=== PATIENT | female | born 1960 | race Caucasian/White ===

== ENCOUNTER → 2023-11-09 16:08 | Outpatient (REF) | payer BC, SELFPAY | LOC: MRI 3T 16:08 | PROVIDERS: ATTENDING PHYSICIAN Neurological Surgery; FAMILY PHYSICIAN Family Medicine | DX: I67.1 Cerebral aneurysm, nonruptured (principal) | CPT/HCPCS: 70544 ==

== ENCOUNTER → 2023-11-30 07:34 | Outpatient (REF) | payer BC, SELFPAY | LOC: MRI 3T 07:34 | PROVIDERS: ATTENDING PHYSICIAN Physical Medicine & Rehabilitation | DX: M54.16 Radiculopathy, lumbar region (principal); M54.17 Radiculopathy, lumbosacral region | CPT/HCPCS: 72148 ==

== ENCOUNTER 2023-12-27 12:13 | Emergency (ER) | payer BC, SELFPAY ==
[2023-12-27] VITALS (7 sets, daily range): BP systolic 116–133; BP diastolic 64–77; BMI 23.1
--- NOTE | 2023-12-27 12:35 | ED.GENMED ---
History of Present Illness
<Melvi Frazier PA-C - Last Filed: 12/27/23 18:48>
General
Chief Complaint: Heart Rate Problem
Source: patient
Exam Limitations: none
Time Seen by Provider: 12/27/23 12:34
Nursing documentation reviewed up to this point in time: agreed with
Travel History
Have you had any contact with someone who has COVID-19?: No
Do you have any symptoms of coronavirus? Fever > 100 degrees, chills, cough, shortness of breath, sore throat, loss of taste or smell, muscle aches, or headache?: No
History of Present Illness
History of Present Illness:
This is a 63-year-old female with a history of a brain aneurysm, SVT, hyperlipidemia, GERD presenting to the emergency department today with concerns of presyncopal symptoms and tachycardia. Patient also complains of left-sided chest pain. Patient
states that she has had presyncopal symptoms and tachycardia for few days now. Patient states that she will feel a bit lightheaded and started to pass out and feeling her heart racing but she will never lose consciousness. Patient is concerned
because her heart rate is in the 80s recently and is usually in the 60s to 70s. Patient states that she will start to feel dizzy and light headed and started to experience visual changes and felt like she was going to pass out. This happened
again yesterday when she was going to sabianist by [facility] and so because she felt this way, she called 911. Patient states that they did an EKG and chest x-ray yesterday and states that everything was normal. Patient presents today
because she started to have left-sided chest pain associated with the symptoms. Patient states that she has had this chest pain for a few weeks but she is concerned something was missed on ER visit yesterday. Patient states that the pain is worse
with deep inspiration. Patient states that the pain comes and goes, the pain is not related to exertion. Patient denies shortness of breath.
Past History
<Melvi Frazier PA-C - Last Filed: 12/27/23 18:48>
Past History
ED Past Medical History: GERD, HTN, Hypercholesterolemia and Other (migraine LU, endometriosis, fibercystic breasts, Cerebral Aneurysm that is being monitored)
ED Past Surgical History: Gynecological (Hysterectomy)
Social History
Tobacco: Non-smoker
Alcohol: Daily (Wine 2 glasses)
Drug: None
Personal: Single
Living: with family
Employment: Not employed
Family History
Family History: Other
Review of Systems
<Melvi Frazier PA-C - Last Filed: 12/27/23 18:48>
Review of Systems
All Other Systems: ROS reviewed and negative except as documented in HPI and ROS
Phy Exam
<JOYCE Busch Last Filed: 12/27/23 18:48>
Physical Exam
Physical Exam:
Vitals: Patient's vital signs are stable
General: Patient is well appearing and no acute distress
Skin: Warm and dry, no rashes or lesions
Cardiac: Regular rate and rhythm, no murmurs
Peripheral Vascular: No lower extremity edema. 2+ dorsalis pedis pulses b/l.
Pulm: Normal respiratory effort, no wheezes, rales, or rhonchi
Abdomen: No abdominal tenderness
Neuro: CN II-XII intact, no focal neurologic deficits.
Musculoskeletal: 5/5 strength in b/l upper and lower extremities.
Psychiatric: Anxious affect.
Course
<Melvi Frazier PA-C - Last Filed: 12/27/23 18:48>
Orders/Labs/Results
Orders:
Orders
12/27/23 12:21
ECG [Electrocardiogram (*1)] Urgent
Reason for Study: Chest Pain
12/27/23 12:22
EKG- Treatment ONCE
12/27/23 12:33
CMP [Comprehensive Metabolic Panel] Urgent
Complete Blood Count/With Diff Urgent
Troponin I Urgent
12/27/23 13:06
D-Dimer Urgent
12/27/23 13:53
CT Chest Pe Study Urgent
Comment:
Reason For Exam: left sided chest pain, shortness of breath
12/27/23 16:00
Diphenhydramine [Benadryl] 50 mg IV NOW STA
Hydrocortisone Sod Succinate [Solu-Cortef] 200 mg IV NOW STA
12/27/23 16:05
Diphenhydramine [Benadryl] 50 mg IV NOW STA
Hydrocortisone Sod Succinate [Solu-Cortef] 200 mg IV NOW STA
12/27/23 16:15
Hydrocortisone Sod Succinate [Solu-Cortef] 100 mg .ROUTE .STK-MED ONE
Abnormal Lab Results
12/27/23 12/27/23 12/27/23
12:33 13:06 17:48
RBC 4.13 L 10^6/uL
(4.20-5.40)
Hct 36.6 L %
(37.0-47.0)
MCH 32.0 H pg
(27.0-31.0)
D-Dimer 1.91 H ug/mlFEU
(0.00-0.50)
Carbon Dioxide 19 L mmol/L
(22-30)
POC Glucose 105 H mg/dl
(70-99)
12/27/23 12:33
12/27/23 12:33
Vital Signs
Initial and Last Documented VS:
Initial Vital Signs
BP
122/72
12/27/23 12:20
Last Documented Vital Signs
Temp Pulse Resp BP Pulse Ox
98.1 F 73 18 133/73 98
12/27/23 12:25 12/27/23 18:15 12/27/23 18:15 12/27/23 17:00 12/27/23 18:15
<Daniel Aceves, DO - Last Filed: 12/27/23 15:29>
Orders/Labs/Results
Orders:
Orders
12/27/23 12:21
ECG [Electrocardiogram (*1)] Urgent
Reason for Study: Chest Pain
12/27/23 12:22
EKG- Treatment ONCE
12/27/23 12:33
CMP [Comprehensive Metabolic Panel] Urgent
Complete Blood Count/With Diff Urgent
Troponin I Urgent
12/27/23 13:06
D-Dimer Urgent
12/27/23 13:53
CT Chest Pe Study Urgent
Comment:
Reason For Exam: left sided chest pain, shortness of breath
12/27/23 16:00
Diphenhydramine [Benadryl] 50 mg IV NOW STA
Hydrocortisone Sod Succinate [Solu-Cortef] 200 mg IV NOW STA
12/27/23 16:05
Diphenhydramine [Benadryl] 50 mg IV NOW STA
Hydrocortisone Sod Succinate [Solu-Cortef] 200 mg IV NOW STA
12/27/23 16:15
Hydrocortisone Sod Succinate [Solu-Cortef] 100 mg .ROUTE .STK-MED ONE
Abnormal Lab Results
12/27/23 12/27/23 12/27/23
12:33 13:06 17:48
RBC 4.13 L 10^6/uL
(4.20-5.40)
Hct 36.6 L %
(37.0-47.0)
MCH 32.0 H pg
(27.0-31.0)
D-Dimer 1.91 H ug/mlFEU
(0.00-0.50)
Carbon Dioxide 19 L mmol/L
(22-30)
POC Glucose 105 H mg/dl
(70-99)
12/27/23 12:33
12/27/23 12:33
Vital Signs
Initial and Last Documented VS:
Initial Vital Signs
BP
122/72
12/27/23 12:20
Last Documented Vital Signs
Temp Pulse Resp BP Pulse Ox
98.1 F 73 18 133/73 98
12/27/23 12:25 12/27/23 18:15 12/27/23 18:15 12/27/23 17:00 12/27/23 18:15
<Melvi Frazier PA-C - Last Filed: 12/27/23 18:48>
*Critical Care Note
Total Time (30-74mins, 75-104mins- exclusive of procedures): Not Applicable
<Melvi Frazier PA-C - Last Filed: 12/27/23 18:48>
Patient Management
Escalation/DeEscalation of care consider admission/obs:
This is a 63-year-old female with a history of a brain aneurysm, SVT, hyperlipidemia, GERD presenting to the emergency department today with concerns of presyncopal symptoms and tachycardia. Patient is concerned because her heart rate was
persistently in the 80s at home and would occasionally jump up to the 110s. Patient also has had chest pain.
Patient is very well appearing and has no abnormal physical exam findings. Considering her intermittent tachycardia, intermittent syncopal episodes, and intermittent chest pain, PE was considered d-dimer was performed which was elevated. Patient has
documented allergy to IV contrast due to her brain aneurysm, however her neurosurgery team was called who approved the dye, and patient was pretreated with Benadryl. Ct findings resulted with no evidence for pulmonary embolism.
Within around 10-15 minutes following Benadryl administration, patient felt faint. I lowered the bed. Her vitals were stable at this time. She also started to feel paresthesias in her bilateral legs as well as anxiety as well as a sensation of
shaking in her extremities. I suspect a paradoxical reaction to Benadryl. Patient was reassessed multiple times and patients symptoms eventually resolved.
Considering patient's chest pain and palpitations--no repeat troponin indicated as this has been ongoing. Patient has a first time appointment with a manager style to address these symptoms tomorrow. Patient stable for discharge with close follow up.
ED Attending Note
<Melvi Frazier PA-C - Last Filed: 12/27/23 18:48>
-
Portions of this chart may have been created with voice recognition software.� Occasional wrong word or��sound alike� substitutions may have occurred due to the inherent limitations of voice recognition software.
<Daniel Aceves DO - Last Filed: 12/27/23 15:29>
ED Attending Note
Patient seen and examined by attending physician: Yes
I performed a history and physical exam of patient and discussed management with resident, I reviewed resident's note and agree with documented findings and plan of care.: Yes
ED Attending Note:
I have reviewed and agree with history and treatment plan by Melvi Frazier. My exam revealed
Physical Exam
General: no apparent distress, not acutely ill
Neck: supple. no meningeal signs. normal posterior pharynx
Heart: s1/s2 regular rate and rhythm, no murmur. equal radial
pulses.
HEENT: Pupils equal round reactive to light, EOMI
Lungs: no acute respiratory distress. clear bilaterally
Abdomen: normal bowel sounds. not tender. no CVAT
Neuro: alert and oriented. no focal neurological deficits cranial nerves II through XII intact
Skin: no rash
Psychiatric: well kept. interactive and cooperative
Extremities: no edema. no calf tenderness. negative homans. good distal pulses
Mild D-dimer elevation. Do not suspect ruptured aneurysm. Will obtain CT angiography. Attempting to obtain information about patient's contrast allergy.
Discharge Plan
Departure
Patient Disposition: Home (Routine Discharge)
Date of Disposition: 12/27/23
Time of Disposition: 18:15
Patient with high blood pressure during this ER visit?: Yes
Condition: Good
Discharge Problem:
Episodic lightheadedness, Chest pain
Instructions: Near Fainting (DC), Chest pain, BLOOD PRESSURE
Prescriptions:
No Action
No Current Medications
0
Referrals:
Benedicto Nagy MD [Family Provider] -
Activity Restrictions/Additional Instructions:
As discussed, please follow-up with your cardiology appointment tomorrow. Please continue to monitor your symptoms.
Please follow-up with your primary care provider--your CT demonstrated a possible enlarged thyroid nodule and thyroid ultrasound is recommended for follow up.
Please return to emergency department for any concerns.
Interventions
Interventions:
*Risk Screen - Suicide Last Done: 12/27/23 12:25
*General Assessment Last Done: 12/27/23 12:25
*Neglect/Abuse Screening Last Done: 12/27/23 12:25
ED- Fall Risk Assessment Last Done: 12/27/23 12:25
*ED COVID-19 Vaccine History Last Done: 12/27/23 12:25
*Nursing Disposition Last Done: 12/27/23 18:46
ED- Cardiac Assessment Last Done: 12/27/23 12:25
ED- Pulmonary Assessment Last Done: 12/27/23 12:25
Discharge Date and Time
Print Language: CENTRAL AFRICAN
[2023-12-27 12:44] LABS: % Basophils 0.9 % (0-2); % Eosinophils 0.5 % (0-6); % Immature Granulocytes 0.2 % (0-0.5); % Lymphocytes 40.8 % (20.5-51.1); % Monocytes 8.3 % (1.7-9.3); % Neutrophils 49.3 % (42.2-75.2); Absolute Basophils 0.1 10^3/uL (0-0.2); Absolute Lymphocytes 2.3 10^3/uL (1.2-3.4); Absolute Monocytes 0.5 10^3/uL (0.1-0.6); Absolute Neutrophils 2.7 10^3/uL (1.4-6.5); Hematocrit 36.6 % (37.0-47.0); Hemoglobin 13.2 g/dL (12.0-16.0); Mean Corp Hgb Conc. 36.1 g/dL (33.0-37.0); Mean Corpuscular Volume 88.6 fL (81.0-99.0); Mean Platelet Volume 8.8 fL (7.4-10.4); Nucleated Red Blood Cells % 0 %; Platelet Count 261 10^3/uL (130-400); Red Blood Cell Count 4.13 10^6/uL (4.20-5.40); Red Cell Dist. Width 11.8 % (11.5-14.5); White Blood Cell Count 5.5 10^3/uL (4.8-10.8)
[2023-12-27 12:55] LABS: ALT (SGPT) 25 U/L (0-35); AST (SGOT) 22 U/L (14-36); Albumin 4.3 g/dl (3.5-5.0); Alkaline Phosphatase 70 U/L (38-126); Blood Urea Nitrogen 15 mg/dl (7-17); Calcium 9.9 mg/dl (8.4-10.2); Carbon Dioxide 19 mmol/L (22-30); Chloride 107 mmol/L (98-107); Estimated Creatinine Clearance 93 ml/min; Glucose 88 mg/dl (70-99); Potassium 3.7 mmol/L (3.5-5.1); Sodium 136 mmol/L (135-145); Total Bilirubin 0.6 mg/dl (0.2-1.3); eGFR > 60.00
[2023-12-27 13:06] LABS: Troponin I < 0.012 ng/ml
[2023-12-27 13:27] LABS: D-Dimer 1.91 ug/mlFEU (0.00-0.50)
[2023-12-27] MEDS: SOLU-CORTEF 200 MG IV (16:14)
[2023-12-27] MEDS: BENADRYL 50 MG IV (16:16)
[2023-12-27 16:26] LABS: Glucose - Point of Care 97 mg/dl (70-99)
[2023-12-27 17:49] LABS: Glucose - Point of Care 105 mg/dl (70-99)
== END 2023-12-27 18:46 | disposition home or self-care (01) ==
LOC: EMR 12:13
PROVIDERS: Physician Assistant; EMERGENCY PHYSICIAN Emergency Medicine; FAMILY PHYSICIAN Family Medicine
DX: R42 Dizziness and giddiness (principal); R07.89 Other chest pain; I10 Essential (primary) hypertension; K21.9 Gastro-esophageal reflux disease without esophagitis; E78.00 Pure hypercholesterolemia, unspecified
CPT/HCPCS: 99285; 96374; 96375; 71275; 80053; 82962; 84484; 85025; 85379; 93005; Q9967

== ENCOUNTER → 2024-01-24 15:34 | Outpatient (REF) | payer BC, SELFPAY | LOC: RAD 15:34 | PROVIDERS: ATTENDING PHYSICIAN Family Medicine | DX: E04.1 Nontoxic single thyroid nodule (principal) | CPT/HCPCS: 76536 ==

== ENCOUNTER → 2024-01-31 14:57 | Outpatient (REF) | payer BC, SELFPAY | LOC: RCS 14:57 | PROVIDERS: ATTENDING PHYSICIAN Internal Medicine Cardiovascular Disease; FAMILY PHYSICIAN Family Medicine | DX: R00.2 Palpitations (principal); R42 Dizziness and giddiness; I47.10 Supraventricular tachycardia, unspecified; I47.29 Other ventricular tachycardia | CPT/HCPCS: 93306 ==

== ENCOUNTER → 2024-04-13 11:21 | Outpatient (REF) | payer BC, SELFPAY | LOC: MRI 3T 11:21 | PROVIDERS: ATTENDING PHYSICIAN Nurse Practitioner Adult Health; FAMILY PHYSICIAN Family Medicine | DX: G93.5 Compression of brain (principal) | CPT/HCPCS: 70551 ==

== ENCOUNTER 2024-06-04 18:20 | Emergency (ER) | payer BC, SELFPAY ==
[2024-06-04] VITALS (11 sets, daily range): BP systolic 111–146; BP diastolic 68–83; BMI 26.8
--- NOTE | 2024-06-04 19:26 | ED.GENMED ---
History of Present Illness
General
Chief Complaint: Headache
Source: patient
Exam Limitations: none
Time Seen by Provider: 06/04/24 19:12
Nursing documentation reviewed up to this point in time: agreed with
History of Present Illness
History of Present Illness:
64 female history of cerebral aneurysm followed radiographically and recently had a four-vessel angiogram at [facility] scheduled to have a craniotomy and clipping in 2 weeks, this week she has had some headache posterior bilaterally, blood pressure
elevated to 140/90 range has been to some stress, no nausea, no vomiting, loss developed some right-sided numbness arm greater than leg
Past History
Past History
ED Past Medical History: GERD, HTN, Hypercholesterolemia and Other (migraine LU, endometriosis, fibercystic breasts, Cerebral Aneurysm that is being monitored)
ED Past Surgical History: Gynecological (Hysterectomy)
Social History
Tobacco: Non-smoker
Alcohol: Daily (Wine 2 glasses)
Drug: None
Personal: Single
Living: with family
Employment: Not employed
Family History
Family History: Other
Review of Systems
Review of Systems
All Other Systems: Not applicable
Constitutional: Denies fever or fatigue
EENT: Reports no symptoms
Respiratory: Reports no symptoms
ABD/GI: Reports no symptoms
: Reports no symptoms
Psychiatric: Reports anxiety
Phy Exam
Physical Exam
Physical Exam:
Physical Exam
General: no apparent distress, not acutely ill
Neck: No jaundice
Heart: s1/s2 regular rate and rhythm, no murmur. equal radial pulses.
Lungs: no acute respiratory distress. clear bilaterally
Abdomen: Nontender
Neuro: alert and oriented. Subtle weakness right arm greater than right leg
Skin: no rash
Psychiatric: well kept. interactive and cooperative
Extremities: no edema.
Course
Orders/Labs/Results
Orders:
Orders
06/04/24 18:23
CT Head W/o Iv Contrast Urgent
Comment: recent diagnosis of cerberal aneurysm
Reason For Exam: posterior headache x 2 days.
06/04/24 19:23
Labetalol HCl [Trandate] 10 mg IV NOW STA
06/04/24 19:40
Complete Blood Count/No Diff Urgent
Comprehensive Metabolic Panel Urgent
06/04/24 20:51
Acetaminophen [Tylenol] 650 mg PO NOW STA
Abnormal Lab Results
06/04/24
19:40
Hct 36.8 L %
(37.0-47.0)
MCH 31.6 H pg
(27.0-31.0)
Chloride 96 L mmol/L
(98-107)
Total Protein 8.7 H g/dl
(6.3-8.2)
06/04/24 19:40
06/04/24 19:40
Vital Signs
Initial and Last Documented VS:
Initial Vital Signs
Temp Pulse Resp BP Pulse Ox
98 F 68 18 146/82 100
06/04/24 18:24 06/04/24 18:24 06/04/24 18:24 06/04/24 18:24 06/04/24 18:24
Last Documented Vital Signs
Temp Pulse Resp BP Pulse Ox
98 F 65 19 111/75 99
06/04/24 18:24 06/04/24 21:30 06/04/24 21:30 06/04/24 21:30 06/04/24 21:30
MDM/Problems Addressed
Differential Diagnosis Includes:
Symptomatic aneurysm, seizure anxiety ruptured aneurysm
MDM/Problems Addressed:
Headache
*Critical Care Note
Total Time (30-74mins, 75-104mins- exclusive of procedures): 31
Update Note
Update Note:
8:[address] noted for report pending blood pressure down 120/70, patient has some anxiety understandably so, still having some headaches will try some Tylenol, was a daily drinker none for 3 to 5 weeks, states she has severely she is
withdrawing from that, awaiting formal report on her CAT scan
9:[address] scan noted reviewed with patient has mild headache using Tylenol, blood pressure is improved, called and neurosurgery Kobe they recommend transfer this evening move her surgery up to Tuesday, patient has significant other talking
about it
ED Attending Note
-
Portions of this chart may have been created with voice recognition software.� Occasional wrong word or��sound alike� substitutions may have occurred due to the inherent limitations of voice recognition software.
Discharge Plan
Departure
Patient Disposition: Acute Care Hospital
Date of Disposition: 06/04/24
Time of Disposition: 21:58
Patient with high blood pressure during this ER visit?: Yes
Condition: Fair
Covid-19: Not Applicable
Discharge Problem:
Aneurysm, cerebral, nonruptured
Prescriptions:
No Action
No Current Medications
0
Referrals:
Benedicto Nagy MD [Family Provider] -
Hospital Transfer
Other hospital: [facility]
I certify that the patient requires transfer: Yes
Discussed case with accepting physician: Clyde
Reason for transfer: higher level of care and specialties available
Interventions
Interventions:
*Risk Screen - Suicide Last Done: 06/04/24 18:30
*General Assessment Last Done: 06/04/24 18:30
*Neglect/Abuse Screening Last Done: 06/04/24 18:30
ED- Neurological Assessment Last Done: 06/04/24 18:46
Discharge Date and Time
Print Language: POLISH
[2024-06-04] MEDS: TRANDATE 10 MG IV (19:34)
[2024-06-04 19:55] LABS: Hematocrit 36.8 % (37.0-47.0); Hemoglobin 13.5 g/dL (12.0-16.0); Mean Corp Hgb Conc. 36.7 g/dL (33.0-37.0); Mean Corpuscular Hgb 31.6 pg (27.0-31.0); Mean Corpuscular Volume 86.2 fL (81.0-99.0); Mean Platelet Volume 8.8 fL (7.4-10.4); Platelet Count 290 10^3/uL (130-400); Red Blood Cell Count 4.27 10^6/uL (4.20-5.40); Red Cell Dist. Width 11.5 % (11.5-14.5); White Blood Cell Count 6.3 10^3/uL (4.8-10.8)
[2024-06-04 20:13] LABS: ALT (SGPT) 27 U/L (0-35); AST (SGOT) 26 U/L (14-36); Albumin 4.8 g/dl (3.5-5.0); Alkaline Phosphatase 70 U/L (38-126); Blood Urea Nitrogen 13 mg/dl (7-17); Carbon Dioxide 24 mmol/L (22-30); Chloride 96 mmol/L (98-107); Estimated Creatinine Clearance 85 ml/min; Glucose 95 mg/dl (70-99); Potassium 3.8 mmol/L (3.5-5.1); Sodium 135 mmol/L (135-145); Total Bilirubin 0.6 mg/dl (0.2-1.3); Total Protein 8.7 g/dl (6.3-8.2); eGFR > 60.00
[2024-06-04] MEDS: TYLENOL 650 MG PO (20:54)
== END 2024-06-04 23:43 | disposition short-term general hospital (02) ==
LOC: EMR 18:20
PROVIDERS: EMERGENCY PHYSICIAN Emergency Medicine; FAMILY PHYSICIAN Family Medicine
DX: I67.1 Cerebral aneurysm, nonruptured (principal); I10 Essential (primary) hypertension; E78.00 Pure hypercholesterolemia, unspecified; K21.9 Gastro-esophageal reflux disease without esophagitis; Z90.710 Acquired absence of both cervix and uterus
CPT/HCPCS: 96374; 99291; 70450; 80053; 85027

== ENCOUNTER 2024-06-25 15:56 | Emergency (ER) | payer BC, SELFPAY ==
[2024-06-25 15:59] VITALS: BP 124/75
--- NOTE | 2024-06-25 15:59 | ED.CVA ---
ED Provider Triage
<Hira Maldonado PA-C - Last Filed: 06/25/24 16:05>
-
Patient seen by provider in Triage?: Seen in Triage
Attestation: A medical screening examination has been initiated by a qualified medical provider. Based on the assessment performed at this time, it has been determined that an emergent medical condition may exist and the patient has been informed
that further medical evaluation and possible additional diagnostic testing may be needed.
HPI: 64 year old female presenting to the ED for evaluation at the request of her neurosurgical team for evaluation of dizziness and speech difficulties. Patient had recent craniotomy after having acutely increased size of her cerebral aneurysm ~ 3
weeks ago. Patient reports her neurology team is concerned for possible seizure. She is taking oral Keppra. Speech does seem a little bit slowed. Given her history stat head CT ordered and patient brought back to the ER for further evaluation.
GENERAL: Alert , in no apparent distress
EYE: No visual abnormalities.
NECK: Trachea midline
ENT: No visible abnormalities.
LUNGS: No acute respiratory distress
NEUROLOGICAL: Alert and oriented
SKIN: Skin intact. No visible changes.
MUSCULOSKELETAL: Moving extremities normally
PSYCH: Normal and appropriate interaction.
This is a medical evaluation conducted in person to initiate diagnostic evaluation and provide initial therapeutics. Please see further documentation by the treating clinician.
History of Present Illness
<Hira Maldonado PA-C - Last Filed: 06/25/24 16:05>
General
Chief Complaint: CVA/TIA Symptoms
Time Seen by Provider: 06/25/24 16:51
<Ye Fuchs Jr., PA-C - Last Filed: 06/25/24 19:26>
General
Source: patient
Exam Limitations: none
Nursing documentation reviewed up to this point in time: agreed with
Onset of Stroke Symptoms
Onset of symptoms known: No
Time pt last seen normal is known: No
History of Present Illness
History of Present Illness:
64-year-old female with past medical history of previously diagnosed brain aneurysm a few weeks ago went to [place] ended up needing a craniotomy. She has had some degree of ongoing symptoms since but is mainly concerned of some dizziness some
speech issues worsening over the past few days. She has been in contact with her neurosurgeon. Also has had some headaches. Denies vomiting or fevers. No drainage from the surgical site. Denies any numbness or weakness to her extremities.
Past History
<Hira Maldonado PA-C - Last Filed: 06/25/24 16:05>
Past History
ED Past Medical History: GERD, HTN, Hypercholesterolemia and Other (migraine LU, endometriosis, fibercystic breasts, Cerebral Aneurysm that is being monitored)
ED Past Surgical History: Gynecological (Hysterectomy)
Social History
Tobacco: Non-smoker
Alcohol: Daily (Wine 2 glasses)
Drug: None
Personal: Single
Living: with family
Employment: Not employed
Family History
Family History: Other
Review of Systems
<Ye Fuchs Jr., PA-C - Last Filed: 06/25/24 19:26>
Review of Systems
Allergies reviewed?: Yes
All Other Systems: ROS reviewed and negative except as documented in HPI and ROS
Phy Exam
<Ye Fuchs Jr., PA-C - Last Filed: 06/25/24 19:26>
Physical Exam
Physical Exam:
GENERAL: Alert , in no apparent distress
EYE: pupils equal and reactive
NECK: Supple, no significant adenopathy.
ENT: Healing surgical incision to the left frontal scalp. No drainage no redness or warmth o/p clr, mmm.
CARDIAC: Regular rate and rhythm .
LUNGS: Clear breath sounds bilaterally, no acute respiratory distress, no wheezes/rales/rhonchi
ABDOMEN: Soft, without focal tenderness, no r/g, no cvat
NEUROLOGICAL: Alert and oriented, no focal neuro deficits
SKIN: Warm and dry, skin intact.
MUSCULOSKELETAL: No edema, well perfused.
PSYCH: Normal and appropriate interaction.
Course
<Hira Maldonado PA-C - Last Filed: 06/25/24 16:05>
Orders/Labs/Results
Orders:
Orders
06/25/24 16:04
CT Head W/o Iv Contrast Urgent
Comment:
Reason For Exam: recent craniotomy, speech difficulties, dizzy
06/25/24 17:01
EKG [Electrocardiogram (*1)] Urgent
Reason for Study: Vertigo / Dizzy
06/25/24 17:02
EKG- Treatment ONCE
06/25/24 17:03
0.9% Sodium Chloride 1000 ml [Nss] 1,000 ml IV BOLUS
06/25/24 17:48
CBC/With Diff [Complete Blood Count/With Diff] Urgent
CMP [Comprehensive Metabolic Panel] Urgent
06/25/24 18:53
Urinalysis Reflex To Culture Urgent
Date Specimen was Collected: 06/25/24
Time Specimen was Collected: 18:51
Abnormal Lab Results
06/25/24
17:48
RBC 3.39 L 10^6/uL
(4.20-5.40)
Hgb 10.7 L g/dL
(12.0-16.0)
Hct 31.4 L %
(37.0-47.0)
MCH 31.6 H pg
(27.0-31.0)
Plt Count 449 H 10^3/uL
(130-400)
Glucose 100 H mg/dl
(70-99)
ALT 47 H U/L
(0-35)
Alkaline Phosphatase 150 H U/L
(38-126)
06/25/24 17:48
06/25/24 17:48
Vital Signs
Initial and Last Documented VS:
Initial Vital Signs
Temp Pulse Resp BP Pulse Ox
98.0 F 72 18 124/75 100
06/25/24 15:59 06/25/24 15:59 06/25/24 15:59 06/25/24 15:59 06/25/24 15:59
Last Documented Vital Signs
Temp Pulse Resp BP Pulse Ox
98.0 F 67 21 114/69 100
06/25/24 15:59 06/25/24 18:15 06/25/24 18:15 06/25/24 18:00 06/25/24 18:15
<Ye Fuchs Jr., PA-C - Last Filed: 06/25/24 19:26>
Orders/Labs/Results
Orders:
Orders
06/25/24 16:04
CT Head W/o Iv Contrast Urgent
Comment:
Reason For Exam: recent craniotomy, speech difficulties, dizzy
06/25/24 17:01
EKG [Electrocardiogram (*1)] Urgent
Reason for Study: Vertigo / Dizzy
06/25/24 17:02
EKG- Treatment ONCE
06/25/24 17:03
0.9% Sodium Chloride 1000 ml [Nss] 1,000 ml IV BOLUS
06/25/24 17:48
CBC/With Diff [Complete Blood Count/With Diff] Urgent
CMP [Comprehensive Metabolic Panel] Urgent
06/25/24 18:53
Urinalysis Reflex To Culture Urgent
Date Specimen was Collected: 06/25/24
Time Specimen was Collected: 18:51
Abnormal Lab Results
06/25/24
17:48
RBC 3.39 L 10^6/uL
(4.20-5.40)
Hgb 10.7 L g/dL
(12.0-16.0)
Hct 31.4 L %
(37.0-47.0)
MCH 31.6 H pg
(27.0-31.0)
Plt Count 449 H 10^3/uL
(130-400)
Glucose 100 H mg/dl
(70-99)
ALT 47 H U/L
(0-35)
Alkaline Phosphatase 150 H U/L
(38-126)
06/25/24 17:48
06/25/24 17:48
Vital Signs
Initial and Last Documented VS:
Initial Vital Signs
Temp Pulse Resp BP Pulse Ox
98.0 F 72 18 124/75 100
06/25/24 15:59 06/25/24 15:59 06/25/24 15:59 06/25/24 15:59 06/25/24 15:59
Last Documented Vital Signs
Temp Pulse Resp BP Pulse Ox
98.0 F 67 21 114/69 100
06/25/24 15:59 06/25/24 18:15 06/25/24 18:15 06/25/24 18:00 06/25/24 18:15
<Ye Fuchs Jr., PA-C - Last Filed: 06/25/24 19:26>
MDM/Problems Addressed
MDM/Problems Addressed:
64-year-old female presenting to the emergency department today with concerns of change in speech and dizziness that occurred earlier today but has been intermittent over the past few days. Recently had a craniotomy due to brain aneurysm a few
weeks ago. Patient had a CT scan that was ordered from triage findings were discussed with patient's neurosurgeon who has been in discussion with the patient's family throughout the day today. The neurosurgeon Dr. Elisa Cantu claimed
that the findings are expected after this type of procedure and that the patient does not require transfer. If symptoms are not severe she can be discharged home and could potentially follow-up with her tomorrow at noon. This was described and
explained to the patient who demonstrated understanding. Here labs were obtained without acute abnormalities. She did have a slight elevation of alk phos and ALT that she has had elevated in the past. This is being followed as an outpatient.
Otherwise patient feeling well will follow-up closely as an outpatient. Return precautions given.
<Ye Fuchs Jr., PA-C - Last Filed: 06/25/24 19:26>
*Critical Care Note
Total Time (30-74mins, 75-104mins- exclusive of procedures): Not Applicable
ED Attending Note
<Hira Maldonado PA-C - Last Filed: 06/25/24 16:05>
-
Portions of this chart may have been created with voice recognition software.� Occasional wrong word or��sound alike� substitutions may have occurred due to the inherent limitations of voice recognition software.
Discharge Plan
Departure
Patient Disposition: Home (Routine Discharge)
Date of Disposition: 06/25/24
Time of Disposition: 19:25
Patient with high blood pressure during this ER visit?: No
Condition: Good
Covid-19: Not Applicable
Discharge Problem:
Headache
Prescriptions:
No Action
No Current Medications
0
Referrals:
Benedicto Nagy MD [Family Provider] -
Activity Restrictions/Additional Instructions:
You came to the emergency department today with concerns of a few symptoms. Please help closely with your neurosurgeon who is willing to see you tomorrow if he would like to follow-up tomorrow. Otherwise please contact your neurosurgeon closely as
an outpatient. Return for any worsening, new or concerning symptoms.
Interventions
Interventions:
*Risk Screen - Suicide Last Done: 06/25/24 15:59
*General Assessment Last Done: 06/25/24 15:59
ED- Fall Risk Assessment Last Done: 06/25/24 17:10
*ED COVID-19 Vaccine History Last Done: 06/25/24 15:59
ED- Pulmonary Assessment Last Done: 06/25/24 17:10
ED- Neurological Assessment Last Done: 06/25/24 17:50
ED- Cardiac Assessment Last Done: 06/25/24 17:10
ED Swallowing Screen Last Done: 06/25/24 17:50
Discharge Date and Time
Print Language: POLISH
--- NOTE | 2024-06-25 16:56 | EDRN ---
Family came out of room w/ neurologist on phone just after pt came into ED treatment area. Neurologist gave TEL # to Joanna MORTON who gave it to Lisette RODRIGUEZ who signed up to care for pt. Lisette RODRIGUEZ in room at this time.
--- NOTE | 2024-06-25 17:06 | EDRN ---
Pt states she had dizziness and headaches (all over her head). Pt also having difficulty word finding, having to stop and think prior to find the word and having some repetitive speech. Pt has head pain now when picks head up at 5-6/10. Vision also
was slightly blurry (new today). Pt spoke to neurosurgical nurse and was advised to come to ER for CT of head.
[2024-06-25 17:10] VITALS: BMI 25.0
--- NOTE | 2024-06-25 17:12 | EDRN ---
Pt had craniotomy on 06/06/24.
[2024-06-25 17:13] VITALS: BP 116/70
--- NOTE | 2024-06-25 17:15 | EDRN ---
Spoke w/ pt about needing IV and blood draw and was requested I check w/ EGerhard RODRIGUEZ to see if necessary.
--- NOTE | 2024-06-25 17:20 | EDRN ---
Lisette RODRIGUEZ speaking w/ pt about IV and blood work that have been ordered at this time. Lisette RODRIGUEZ said to this RN he had spoken to pt's neurologist.
[2024-06-25] MEDS: NSS 1000 IV (17:49)
[2024-06-25 18:00] VITALS: BP 114/69
--- NOTE | 2024-06-25 18:04 | EDRN ---
Pt is aware urine spec needed and given spec cup and wipes on commode for when she can go.
[2024-06-25 18:10] LABS: % Basophils 0.9 % (0-2); % Eosinophils 0.5 % (0-6); % Immature Granulocytes 0.3 % (0-0.5); % Lymphocytes 25.6 % (20.5-51.1); % Monocytes 6.8 % (1.7-9.3); % Neutrophils 65.9 % (42.2-75.2); Absolute Basophils 0.1 10^3/uL (0-0.2); Absolute Lymphocytes 1.7 10^3/uL (1.2-3.4); Absolute Monocytes 0.5 10^3/uL (0.1-0.6); Absolute Neutrophils 4.3 10^3/uL (1.4-6.5); Hematocrit 31.4 % (37.0-47.0); Hemoglobin 10.7 g/dL (12.0-16.0); Mean Corp Hgb Conc. 34.1 g/dL (33.0-37.0); Mean Corpuscular Hgb 31.6 pg (27.0-31.0); Mean Corpuscular Volume 92.6 fL (81.0-99.0); Mean Platelet Volume 8.4 fL (7.4-10.4); Nucleated Red Blood Cells % 0 %; Platelet Count 449 10^3/uL (130-400); Red Blood Cell Count 3.39 10^6/uL (4.20-5.40); Red Cell Dist. Width 12.1 % (11.5-14.5); White Blood Cell Count 6.6 10^3/uL (4.8-10.8)
[2024-06-25 18:16] LABS: ALT (SGPT) 47 U/L (0-35); AST (SGOT) 25 U/L (14-36); Albumin 4.3 g/dl (3.5-5.0); Alkaline Phosphatase 150 U/L (38-126); Blood Urea Nitrogen 13 mg/dl (7-17); Calcium 9.6 mg/dl (8.4-10.2); Carbon Dioxide 24 mmol/L (22-30); Chloride 102 mmol/L (98-107); Estimated Creatinine Clearance 75 ml/min; Glucose 100 mg/dl (70-99); Potassium 4.3 mmol/L (3.5-5.1); Sodium 138 mmol/L (135-145); Total Bilirubin 0.3 mg/dl (0.2-1.3); Total Protein 7.9 g/dl (6.3-8.2); eGFR > 60.00
--- NOTE | 2024-06-25 18:56 | EDRN ---
Urine spec obtained and sent at this time.
[2024-06-25 19:00] VITALS: BP 115/69
[2024-06-25 19:00] LABS: Urine Albumin Negative (Neg - Trace); Urine Bilirubin Negative (Negative); Urine Character Clear (Clear); Urine Color Straw; Urine Glucose Negative (Negative); Urine Ketone Negative (Negative); Urine Leukocyte Negative (Negative); Urine Nitrite Negative (Negative); Urine Occult Blood Negative (Negative); Urine Urobilinogen Negative (Neg - 1+)
== END 2024-06-25 19:48 | disposition home or self-care (01) ==
LOC: EMR 15:56
PROVIDERS: Physician Assistant; EMERGENCY PHYSICIAN Emergency Medicine; FAMILY PHYSICIAN Family Medicine
DX: R51.9 Headache, unspecified (principal); R47.9 Unspecified speech disturbances; K21.9 Gastro-esophageal reflux disease without esophagitis; I10 Essential (primary) hypertension; E78.00 Pure hypercholesterolemia, unspecified; N80.9 Endometriosis, unspecified; I67.1 Cerebral aneurysm, nonruptured; Z90.710 Acquired absence of both cervix and uterus
CPT/HCPCS: 99284; 96360; 70450; 80053; 81003; 85025; 93005

== ENCOUNTER → 2024-07-07 11:29 | Outpatient (REF) | payer BC, SELFPAY | LOC: RAD 11:29 | PROVIDERS: ATTENDING PHYSICIAN Neurological Surgery; FAMILY PHYSICIAN Family Medicine | DX: I67.1 Cerebral aneurysm, nonruptured (principal) | CPT/HCPCS: 70450 ==

== ENCOUNTER → 2024-07-28 08:22 | Outpatient (REF) | payer BC, SELFPAY | LOC: RCS 08:22 | PROVIDERS: ATTENDING PHYSICIAN Internal Medicine Cardiovascular Disease; FAMILY PHYSICIAN Family Medicine | DX: R00.2 Palpitations (principal) | CPT/HCPCS: 93225; 93226 ==

== ENCOUNTER 2024-08-07 10:51 | Outpatient (RCR) | payer BC, SELFPAY | END 2024-08-07 23:59 | disposition home or self-care (01) | LOC: RST 10:51 | PROVIDERS: ATTENDING PHYSICIAN Neurological Surgery | DX: I67.1 Cerebral aneurysm, nonruptured (principal); R47.02 Dysphasia; R48.2 Apraxia; R41.841 Cognitive communication deficit; R47.89 Other speech disturbances | CPT/HCPCS: 92507; 92523 ==

== ENCOUNTER 2024-09-06 11:04 | Outpatient (RCR) | payer BC, SELFPAY | END 2024-09-06 23:59 | disposition home or self-care (01) | LOC: RST 11:04 | PROVIDERS: ATTENDING PHYSICIAN Neurological Surgery | DX: I67.1 Cerebral aneurysm, nonruptured (principal); R47.02 Dysphasia; R48.2 Apraxia; R41.841 Cognitive communication deficit; R47.89 Other speech disturbances; R26.89 Other abnormalities of gait and mobility; R68.84 Jaw pain; Z98.890 Other specified postprocedural states | CPT/HCPCS: 92507 ==

== ENCOUNTER 2024-10-05 11:45 | Outpatient (RCR) | payer BC, SELFPAY | END 2024-10-05 23:59 | disposition home or self-care (01) | LOC: RST 11:45 | PROVIDERS: ATTENDING PHYSICIAN Neurological Surgery | DX: I67.1 Cerebral aneurysm, nonruptured (principal); R41.841 Cognitive communication deficit; R47.02 Dysphasia; R48.2 Apraxia; R47.89 Other speech disturbances; R26.89 Other abnormalities of gait and mobility; R68.84 Jaw pain; Z98.890 Other specified postprocedural states | CPT/HCPCS: 92507 ==

== ENCOUNTER 2025-05-07 16:22 | Emergency (ER) | payer BC, MEDICARE, SELFPAY ==
[2025-05-07 16:41] VITALS: BP 134/88
[2025-05-07 17:09] LABS: Hematocrit 36.9 % (37.0-47.0); Hemoglobin 13.0 g/dL (12.0-16.0); Mean Corp Hgb Conc. 35.2 g/dL (33.0-37.0); Mean Corpuscular Volume 90.2 fL (81.0-99.0); Nucleated Red Blood Cells % 0 %; Platelet Count 241 10^3/uL (130-400); Red Cell Dist. Width 12.2 % (11.5-14.5)
[2025-05-07 17:32] LABS: ALT (SGPT) 29 U/L (0-35); AST (SGOT) 27 U/L (14-36); Albumin 4.7 g/dl (3.5-5.0); Alkaline Phosphatase 67 U/L (38-126); Calcium 9.9 mg/dl (8.4-10.2); Carbon Dioxide 22 mmol/L (22-30); Chloride 102 mmol/L (98-107); Glucose 97 mg/dl (70-99); Potassium 3.9 mmol/L (3.5-5.1); Sodium 133 mmol/L (135-145); Total Protein 9.1 g/dl (6.3-8.2); eGFR > 60.00
[2025-05-07 17:41] LABS: Blood Urea Nitrogen 14 mg/dl (7-17)
[2025-05-07 17:44] LABS: Troponin I 0.028 ng/ml
[2025-05-07 19:48] VITALS: BP 151/78
[2025-05-07 19:50] VITALS: BMI 26.5
[2025-05-07 20:00] VITALS: BP 141/70
[2025-05-07 20:05] LABS: Glucose - Point of Care 98 mg/dl (70-99)
[2025-05-07 20:40] LABS: Troponin I < 0.012 ng/ml
--- NOTE | 2025-05-07 22:00 | ED.GENMED ---
History of Present Illness
General
Chief Complaint: Chest Pain
Source: patient
Exam Limitations: none
Time Seen by Provider: 05/07/25 19:42
History of Present Illness
History of Present Illness:
65-year-old female presents complaining of not feeling well intermittent chest discomfort palpitations and racing heart rate. She had a mobile aakash on her phone that read the atrial fibrillation for her heart rate. She was also getting elevated
blood pressure readings when she typically gets low blood pressure readings. No fevers. Since being here her heart rate has been controlled and she is feeling better. She has a history of brain aneurysm Chiari malformation. She had a brain
surgery for this. She is not currently on any medication.
Past History
Past History
ED Past Medical History: GERD, HTN, Hypercholesterolemia and Other (migraine LU, endometriosis, fibercystic breasts, Cerebral Aneurysm that is being monitored)
ED Past Surgical History: Gynecological (Hysterectomy)
Social History
Tobacco: Non-smoker
Alcohol: Daily (Wine 2 glasses)
Drug: None
Personal: Single
Living: with family
Employment: Not employed
Family History
Family History: Other
Phy Exam
Physical Exam
Physical Exam:
General: Well-appearing female no acute respiratory distress
HEENT: Normal cephalic atraumatic
Heart: Regular rate and rhythm
Lungs: Clear no wheeze
Abdomen is soft nontender
Scores
Heart Score for Chest Pain Patients
STEMI patient?: No
History: Slightly or Non-Suspicious
ECG: Normal
Age: >/= 65 years
Risk Factors: 1 or 2 Risk Factors
Troponin: </= Normal Limit
Heart Score for Chest Pain Patients: 3
Heart Score Risk: 2.5% MACE over next 6 weeks
Course
Orders/Labs/Results
Orders:
Orders
05/07/25 16:34
Electrocardiogram (*1) Urgent
Reason for Study: Chest Pain
EKG- Treatment ONCE
05/07/25 17:03
Complete Blood Count/With Diff Urgent
Comprehensive Metabolic Panel Urgent
Troponin I Urgent
05/07/25 20:01
Electrocardiogram (*1) Urgent
Reason for Study: Chest Pain
EKG- Treatment ONCE
05/07/25 20:02
CR Chest - 2 Views Urgent
Comment:
Reason For Exam: chest pain
05/07/25 20:04
Troponin I Urgent
Abnormal Lab Results
05/07/25
17:03
RBC 4.09 L 10^6/uL
(4.20-5.40)
Hct 36.9 L %
(37.0-47.0)
MCH 31.8 H pg
(27.0-31.0)
Sodium 133 L mmol/L
(135-145)
Creatinine 0.5 L mg/dL
(0.6-1.0)
Total Protein 9.1 H g/dl
(6.3-8.2)
05/07/25 17:03
05/07/25 17:03
Vital Signs
Initial and Last Documented VS:
Initial Vital Signs
Temp Pulse Resp BP Pulse Ox
98.0 F 77 18 134/88 100
05/07/25 16:41 05/07/25 16:41 05/07/25 16:41 05/07/25 16:41 05/07/25 16:41
Last Documented Vital Signs
Temp Pulse Resp BP Pulse Ox
98.0 F 71 15 151/78 100
05/07/25 16:41 05/07/25 19:50 05/07/25 19:50 05/07/25 19:48 05/07/25 19:50
MDM/Problems Addressed
Differential Diagnosis Includes:
Chest discomfort palpitations consider arrhythmia versus ACS. Symptoms are pretty much resolved unlikely to be dissection or PE. Vital signs are stable. Initial troponin 0.02 8 repeat troponin 3 hours later was undetectable. Chest x-ray was
clear. She has been in sinus rhythm on the monitor. And she is symptom-free at this time. At this point no indication for admission will discharge with chest pain hotline follow-up. Return precautions were given.
*Pulse Oximetry
SaO2: 100
Oxygen Mode of Delivery: Room air
Patient hypoxic: no
*Critical Care Note
Total Time (30-74mins, 75-104mins- exclusive of procedures): Not Applicable
ED Attending Note
-
Portions of this chart may have been created with voice recognition software.� Occasional wrong word or��sound alike� substitutions may have occurred due to the inherent limitations of voice recognition software.
Discharge Plan
Departure
Patient Disposition: Home (Routine Discharge)
Date of Disposition: 05/07/25
Time of Disposition: 22:05
Patient with high blood pressure during this ER visit?: No
Discharge Problem:
Chest pain
Instructions: Chest Pain CBC Follow Up
Prescriptions:
No Action
No Current Medications
0
Referrals:
Benedicto Nagy MD [Family Provider, [facility]]
Activity Restrictions/Additional Instructions:
Please return here for any worsening symptoms. Follow-up with your operator receptionist otherwise
Interventions
Interventions:
*Risk Screen - Suicide Last Done: 05/07/25 16:41
*General Assessment Last Done: 05/07/25 16:41
*Neglect/Abuse Screening Last Done: 05/07/25 19:51
*ED- Fall Risk Assessment Last Done: 05/07/25 19:51
*ED COVID-19 Vaccine History Last Done: 05/07/25 19:54
*ED Influenza Vaccine History Last Done: 05/07/25 19:54
ED- Cardiac Assessment Last Done: 05/07/25 19:51
Discharge Date and Time
Print Language: UPPER SORBIAN
[2025-05-07 22:12] VITALS: BP 116/73
== END 2025-05-07 22:19 | disposition home or self-care (01) ==
LOC: EMR 16:22
PROVIDERS: Emergency Medicine; Physician Assistant; EMERGENCY PHYSICIAN Emergency Medicine; FAMILY PHYSICIAN Family Medicine
DX: R07.89 Other chest pain (principal); I10 Essential (primary) hypertension; E78.00 Pure hypercholesterolemia, unspecified; Z90.710 Acquired absence of both cervix and uterus; Z86.79 Personal history of other diseases of the circulatory system
CPT/HCPCS: 99285; 71046; 80053; 82962; 84484; 85025; 93005

== ENCOUNTER → 2025-07-23 10:37 | Outpatient (REF) | payer MEDICARE, BC, SELFPAY | LOC: RAD 10:37 | PROVIDERS: ATTENDING PHYSICIAN Family Medicine | DX: E04.1 Nontoxic single thyroid nodule (principal) | CPT/HCPCS: 76536 ==